=== PATIENT | male | born 1995 | race African-American/Black ===

== ENCOUNTER 2017-11-06 12:17 | Emergency (ER) | payer OTHER ==
[2017-11-06 12:28] VITALS: BP 122/57; PULSE 96; TEMP 102.3; BMI 25.0
[2017-11-06] MEDS ORDERED: ACETAMINOPHEN 500 MG TABLET (FP) PO ONE (14:46)
[2017-11-06] MEDS ORDERED: ACETAMINOPHEN 500 MG TABLET (FP) ONE (14:55)
--- NOTE | 2017-11-06 15:01 | PDOC ---
History of Present Illness - General Chief Complaint: Cold Symptoms Stated Complaint: HEADACHE, THROAT PAIN Time Seen by Provider: 11/06/17 14:29 History Source: Patient Exam Limitations: No Limitations - History of Present Illness Initial Comments: 11/06/17 14:48 This is a 22-year-old male without significant past medical history who presents to the emergency department with 2 days of headaches, fevers, chills, sore throat, rhinorrhea, nasal congestion, moist cough. Patient denies any sick contacts. Patient has been taking Nu-Nichols plus with minimal to no relief of symptoms. Patient is not having any difficulty tolerating by mouth's. Patient denies abdominal pain, nausea, vomiting, diarrhea, dysuria, dizziness. Past History - Past Medical History Allergies/Adverse Reactions: Allergies Allergy/AdvReac Type Severity Reaction Status Date / Time No Known Allergies Allergy Verified 11/06/17 12:28 Home Medications: Ambulatory Orders NK [No Known Home Medication] 11/06/17 COPD: No - Suicide/Smoking/Psychosocial Hx Smoking History: Never smoked Information on smoking cessation initiated: No Hx Alcohol Use: No Drug/Substance Use Hx: No Substance Use Type: None Review of Systems - Review of Systems Able to Perform ROS?: Yes Is the patient limited [place] proficient: No Constitutional: Yes: See HPI HEENTM: Yes: See HPI Respiratory: Yes: See HPI Cardiac (ROS): No: Symptoms Reported ABD/GI: No: Symptoms Reported : No: Symptoms Reported Musculoskeletal: Yes: See HPI Integumentary: No: Symptoms Reported Neurological: Yes: See HPI Endocrine: No: Symptoms Reported *Physical Exam - Vital Signs Last Vital Signs Temp Pulse Resp BP Pulse Ox 102.3 F H 96 H 18 122/57 96 11/06/17 12:26 11/06/17 12:26 11/06/17 12:26 11/06/17 12:26 11/06/17 12:26 - Physical Exam General Appearance: Yes: Appropriately Dressed. No: Apparent Distress HEENT: positive: Pharyngeal Erythema. negative: Tonsillar Exudate, Tonsillar Erythema Neck: positive: Trachea midline, Supple Respiratory/Chest: positive: Lungs Clear, Normal Breath Sounds. negative: Respiratory Distress, Accessory Muscle Use Cardiovascular: positive: Regular Rhythm, Regular Rate, S1, S2. negative: Murmur Gastrointestinal/Abdominal: positive: Normal Bowel Sounds, Soft. negative: Tender Musculoskeletal: positive: Normal Inspection. negative: CVA Tenderness Extremity: positive: Normal Inspection, Normal Range of Motion Integumentary: positive: Normal Color, Dry, Warm Neurologic: positive: account maintenance representative II-XII NML intact, Alert, Normal Response, Motor Strength /5 Medical Decision Making - Medical Decision Making 11/06/17 14:51 A/P: 22-year-old male 2 days of flulike symptoms. Oropharynx with posterior erythema present. No tonsillar erythema or exudate present. No sinus tenderness present. Nasal congestion present. Lungs clear to auscultation bilaterally. Vital signs remarkable for temperature of 102.3F. Pharyngitis versus URI versus influenza Nasopharyngeal swabs for influenza, rapid strep testing, Tylenol, reassessed 11/06/17 15:44 Patient feels better after receiving Tylenol. Influenza and strep testing negative. Patient instructed on symptomatic treatment of upper 3 infection and verbalized understanding. I will discharge patient home. *DC/Admit/Observation/Transfer Diagnosis at time of Disposition: URI (upper respiratory infection) Qualifiers: URI type: unspecified viral URI Qualified Code(s): J06.9 - Acute upper respiratory infection, unspecified - Discharge Dispostion Disposition: HOME Condition at time of disposition: Stable Admit: No - Referrals - Patient Instructions Printed Discharge Instructions: DI for Viral Upper Respiratory Infection -- Adult Additional Instructions: Rest, drink lots of fluids: Teas, water, soups, Pedialyte Saltwater gargles Steamy showers/seem to face break up mucus Avoid contact with others until fevers and cough resolved Lots of handwashing and good hygiene Continue [id number] medications for symptomatic relief Tylenol or Motrin for fever and pain Followup with private physician in one to 2 days as needed Return to emergency department for worsened symptoms, fevers, dehydration - Post Discharge Activity Forms/Work/School Notes: Back to Work
== END 2017-11-06 15:48 | disposition home or self-care (01) ==
LOC: JERFT 12:17
DX: J06.9 Acute upper respiratory infection, unspecified (principal)
CPT/HCPCS: 87070; 87430; 87804; 99281-25